=== PATIENT | male | born 1955 | race African-American/Black ===

== ENCOUNTER 2018-09-26 20:31 | Emergency (ER) | payer OTHER ==
[~2018-09-26] VITALS: Ht 172.7 cm; Wt 68.0 kg
[2018-09-26] MEDS ORDERED: LISI40TA4 PO (20:41)
[2018-09-26] MEDS ORDERED: ONDA4TAB5 PO (20:41)
[2018-09-26] MEDS ORDERED: ALLO100T PO (20:41)
[2018-09-26] MEDS ORDERED: NORCO (20:41)
[2018-09-26] MEDS ORDERED: ROSU5TAB10 PO (20:41)
[2018-09-26] MEDS ORDERED: OMEP20TA15 PO (20:41)
[2018-09-26] MEDS ORDERED: CARV12.545 PO (20:41)
[2018-09-26] MEDS ORDERED: FOLIC (20:41)
[2018-09-26] MEDS ORDERED: OMEP20CA5 PO (20:41)
[2018-09-26] MEDS ORDERED: CYAN25006 SL (20:41)
[2018-09-26] MEDS ORDERED: SODIUM CHLORIDE 0.9% 1,000 ML IV ONE (21:06)
[2018-09-26 23:27] LABS: BASOPHILS % 0.5 % (0.0-2.0); EOSINOPHILS % 1.2 % (0.0-5.0); HEMATOCRIT. 28.9 % (42.0-52.0); HEMOGLOBIN. 10.1 g/dL (14.0-18.0); LYMPHOCYTES % 41.6 % (20.0-50.0); MEAN CORPUSCULAR HEMOGLOBIN 37.4 pg (28.0-32.0); MEAN CORPUSCULAR VOLUME 106.9 fL (80.0-94.0); MEAN PLATELET VOLUME 8.5 fl (7.4-10.4); MONOCYTES % 5.8 % (2.0-8.0); NEUTROPHILS % 50.9 % (40.0-76.0); PLATELET 113 x1000/uL (130-400); RED BLOOD CELL COUNT 2.71 mill/uL (4.7-6.1); RED CELL DISTRIBUTION WIDTH 15.1 % (11.6-14.6)
[2018-09-26 23:32] LABS: CHLORIDE 110 mEq/L (98-107)
[2018-09-26 23:33] LABS: PROTHROMBIN TIME 10.7 sec (9.6-11.0)
[2018-09-27 00:24] LABS: CLARITY URINE CLEAR (CLEAR); COLOR URINE YELLOW (YELLOW); KETONES URINE 2+ (NEGATIVE); LEUKOCYTE ESTERASE URINE 2+ (NEGATIVE); NITRITE URINE POSITIVE (NEGATIVE); OCCULT BLOOD URINE TRACE (NEGATIVE); PH URINE 5.5 (4.5-8.0); PROTEIN URINE NEGATIVE (NEGATIVE); SPECIFIC GRAVITY URINE 1.016 (1.005-1.030)
[2018-09-27] MEDS ORDERED: CEFTRIAXONE 1 G PREMIX 50 ML IV ONE (00:45)
[2018-09-27] MEDS ORDERED: DEXTROSE 50% WATER 50ML SYRINGE IV ONE (00:45)
[2018-09-27 04:15] VITALS: BP 164/86
== END 2018-09-27 04:28 | disposition short-term general hospital (02) ==
LOC: ER 20:31
DX: N39.0 Urinary tract infection, site not specified (principal); E16.2 Hypoglycemia, unspecified; I10 Essential (primary) hypertension; E78.00 Pure hypercholesterolemia, unspecified; Z79.899 Other long term (current) drug therapy
CPT/HCPCS: 36415; 70450; 71045; 80053; 81003; 82962; 83880; 84484; 85025; 85610; 93005; 96365; 99285; J0696; J7030

== ENCOUNTER 2022-07-17 19:28 | Inpatient (IN) | payer OTHER ==
[~2022-07-17] VITALS: Ht 175.3 cm; Wt 72.8 kg
[~2022-07-17 19:28] MED LIST: ALLO100T PO; CARV12.545 PO; CYAN25006 SL; FOLIC; LISI40TA13 PO; NORCO; OMEP20CA14 PO; OMEP20TA15 PO; ONDA4TAB5 PO; ROSU5TAB10 PO
[2022-07-17 20:54] LABS: BASOPHILS % 0.6 % (0.0-2.0); EOSINOPHILS % 0.9 % (0.0-5.0); HEMOGLOBIN. 9.5 g/dL (14.0-18.0); LYMPHOCYTES % 17.7 % (20.0-50.0); MEAN CORPUSCULAR HEMOGLOBIN 35.6 pg (28.0-32.0); MEAN CORPUSCULAR VOLUME 104.5 fL (80.0-94.0); MEAN PLATELET VOLUME 9.2 fl (7.4-10.4); MONOCYTES % 8.4 % (2.0-8.0); NEUTROPHILS % 72.4 % (40.0-76.0); PLATELET 120 x1000/uL (130-400); RED BLOOD CELL COUNT 2.68 mill/uL (4.7-6.1); RED CELL DISTRIBUTION WIDTH 16.5 % (11.6-14.6)
[2022-07-17 20:59] LABS: CHLORIDE 108 mEq/L (98-107)
[2022-07-17] MEDS ORDERED: NITROGLYCERIN 0.4MG TABLET SL SL ONE (23:30)
[2022-07-17] MEDS ORDERED: LABETALOL HCL VIAL 20 MG/4 ML VIAL IV ONE (23:30)
[2022-07-17] MEDS ORDERED: MORPHINE SULFATE 2 MG/ML CPJ (NOT FOR IM USE) IV ONE (23:30)
[2022-07-17] MEDS ORDERED: ASPIRIN 325MG EC TABLET PO ONE (23:30)
[2022-07-17] MEDS ORDERED: LABETALOL 5MG/ML SYR 20 MG/4 ML SYRINGE IV NR (23:45)
[2022-07-18] MEDS ORDERED: MORPHINE SULFATE 2 MG/ML CPJ (NOT FOR IM USE) IV SCH (07:45)
[2022-07-18 11:30] VITALS: BP 113/55
[2022-07-18 12:00] VITALS: BP 113/55
[2022-07-18] MEDS ORDERED: ONDANSETRON HCL 4MG/2ML INJ IV PRN (12:00)
[2022-07-18] MEDS ORDERED: IPRATROPIUM/ALBUTEROL 0.5-3(2.5)MG/3ML NEB HHN SCH (12:00)
[2022-07-18 16:00] VITALS: BP 143/73
[2022-07-18 17:34] LABS: BASOPHILS % 0.3 % (0.0-2.0); EOSINOPHILS % 0.7 % (0.0-5.0); HEMATOCRIT. 27.2 % (42.0-52.0); HEMOGLOBIN. 9.3 g/dL (14.0-18.0); MEAN CORPUSCULAR HEMOGLOBIN 35.7 pg (28.0-32.0); MEAN CORPUSCULAR VOLUME 104.7 fL (80.0-94.0); MONOCYTES % 11.3 % (2.0-8.0); NEUTROPHILS % 63.7 % (40.0-76.0); PLATELET 107 x1000/uL (130-400); RED CELL DISTRIBUTION WIDTH 16.7 % (11.6-14.6)
[2022-07-18 17:47] LABS: CHLORIDE 104 mEq/L (98-107)
[2022-07-18] MEDS: ACETAMINOPHEN 325MG TABLET PO PRN (18:10)
[2022-07-18] MEDS ORDERED: KETOROLAC 15MG/ML VIAL IV PRN (18:30)
[2022-07-18 19:57] VITALS: BP 122/44
[2022-07-18 20:58] LABS: *AMPHETAMINES SCREEN URINE NEGATIVE (NEGATIVE); *BARBITURATES SCREEN URINE NEGATIVE (NEGATIVE); *BENZODIAZEPINES SCREEN URINE NEGATIVE (NEGATIVE); *COCAINE SCREEN URINE NEGATIVE (NEGATIVE); CANNABINOID URINE SCREEN NEGATIVE (NEGATIVE); METHADONE URINE SCREEN NEGATIVE (NEGATIVE); OPIATES URINE SCREEN PRESUMTIVE POSITIVE (NEGATIVE); PHENCYCLIDINE URINE SCREEN NEGATIVE (NEGATIVE)
[2022-07-18] MEDS: ALBUTEROL (0.083%) 2.5MG/3ML NEB HHN SCH (21:52)
[2022-07-18] MEDS: IPRATROPIUM BROMIDE (0.02%) 0.5MG/2.5ML NEB HHN SCH (21:52)
[2022-07-18 23:08] VITALS: BP 122/44
[2022-07-19] MEDS: IPRATROPIUM BROMIDE (0.02%) 0.5MG/2.5ML NEB HHN SCH ×2 (02:26→07:58)
[2022-07-19] MEDS: ALBUTEROL (0.083%) 2.5MG/3ML NEB HHN SCH ×2 (02:26→07:58)
[2022-07-19] MEDS: ACETAMINOPHEN 325MG TABLET PO PRN (04:37)
[2022-07-19 08:00] VITALS: BP 126/69
== END 2022-07-19 09:03 | disposition home or self-care (01) | DRG 205 ==
LOC: ER 19:28 → 7EST 07-18 00:06
PROVIDERS: ADMIT Internal Medicine; ATTEND Internal Medicine
DX: M94.0 Chondrocostal junction syndrome [Tietze] (principal); K85.20 Alcohol induced acute pancreatitis without necrosis or infection; D64.9 Anemia, unspecified; E78.5 Hyperlipidemia, unspecified; H26.9 Unspecified cataract; Z20.822 Contact with and (suspected) exposure to COVID-19; F17.210 Nicotine dependence, cigarettes, uncomplicated; I10 Essential (primary) hypertension; K40.90 Unilateral inguinal hernia, without obstruction or gangrene, not specified as recurrent; M10.9 Gout, unspecified; M19.90 Unspecified osteoarthritis, unspecified site; J44.9 Chronic obstructive pulmonary disease, unspecified; Z86.73 Personal history of transient ischemic attack (TIA), and cerebral infarction without residual deficits; Z79.82 Long term (current) use of aspirin; Z98.1 Arthrodesis status; Z87.440 Personal history of urinary (tract) infections
CPT/HCPCS: 36415; 71045; 80048; 80053; 80305; 83735; 83880; 84484; 85025; 85651; 87426; 93005; 93306; 94640; 99285; C9803; J2270; J3490

== ENCOUNTER 2024-11-12 01:37 | Inpatient (IN) | payer OTHER, MEDICARE ==
[~2024-11-12] VITALS: Ht 175.3 cm; Wt 67.6 kg
[2024-11-12 03:21] LABS: BASOPHILS % 1.5 % (0.0-2.0); EOSINOPHILS % 0.4 % (0.0-5.0); HEMATOCRIT. 26.1 % (42.0-52.0); HEMOGLOBIN. 8.8 g/dL (14.0-18.0); LYMPHOCYTES % 23.3 % (20.0-50.0); MEAN PLATELET VOLUME 10.5 fl (7.4-10.4); MONOCYTES % 6.1 % (2.0-8.0); NEUTROPHILS % 68.7 % (40.0-76.0); PLATELET 112 x1000/uL (130-400); RED BLOOD CELL COUNT 2.42 mill/uL (4.7-6.1); RED CELL DISTRIBUTION WIDTH 19.5 % (11.6-14.6)
[2024-11-12 04:24] LABS: INR 1.0
[2024-11-12 04:29] LABS: *AMPHETAMINES SCREEN URINE NEGATIVE (NEGATIVE); *BARBITURATES SCREEN URINE NEGATIVE (NEGATIVE); *BENZODIAZEPINES SCREEN URINE NEGATIVE (NEGATIVE); *COCAINE SCREEN URINE NEGATIVE (NEGATIVE); METHADONE URINE SCREEN NEGATIVE (NEGATIVE); OPIATES URINE SCREEN NEGATIVE (NEGATIVE); PHENCYCLIDINE URINE SCREEN NEGATIVE (NEGATIVE)
[2024-11-12 04:30] LABS: CANNABINOID URINE SCREEN NEGATIVE (NEGATIVE); ECSTASY MDMA SCREEN URINE NEGATIVE (NEGATIVE)
[2024-11-12 04:56] LABS: CLARITY URINE CLEAR (CLEAR); COLOR URINE YELLOW (YELLOW); GLUCOSE URINE NEGATIVE (NEGATIVE); KETONES URINE 2+ (NEGATIVE); LEUKOCYTE ESTERASE URINE 2+ (NEGATIVE); NITRITE URINE POSITIVE (NEGATIVE); OCCULT BLOOD URINE TRACE (NEGATIVE); PH URINE 6.0 (4.5-8.0); PROTEIN URINE TRACE (NEGATIVE); SPECIFIC GRAVITY URINE 1.014 (1.005-1.030); UROBILINOGEN URINE 1.0 E.U./dL (0.2-1.0)
[2024-11-12 04:58] LABS: TROPONIN I HIGH SENSITIVITY 11 ng/L (3.0-53)
[2024-11-12 05:13] LABS: CREATININE 1.1 mg/dL (0.6-1.3)
[2024-11-12 05:14] LABS: ETHANOL BLOOD 43 mg/dL (<10); UREA NITROGEN BLOOD 24 mg/dL (9-23)
[2024-11-12 05:15] LABS: ASPARTATE AMINOTRANSFERASE 25 IU/L (<34)
[2024-11-12 05:16] LABS: BILIRUBIN DIRECT 0.7 mg/dL (<=3.0); BILIRUBIN TOTAL 1.8 mg/dL (0.1-1.0); PHOSPHORUS 3.3 mg/dL (2.5-4.9); PROTEIN TOTAL 6.7 g/dL (6.0-8.3)
[2024-11-12] MEDS ORDERED: CEFTRIAXONE 2GM/50ML 50 ML IV NR (05:30)
[2024-11-12] MEDS: HYDRALAZINE 20MG/ML VIAL IV NR (05:44)
[2024-11-12] MEDS ORDERED: ACETAMINOPHEN 325MG TABLET PO PRN (05:45)
[2024-11-12] MEDS ORDERED: ONDANSETRON HCL 4MG/2ML INJ IV PRN (05:45)
[2024-11-12] MEDS ORDERED: IPRATROPIUM/ALBUTEROL 0.5-3(2.5)MG/3ML NEB HHN PRN (05:45)
[2024-11-12] MEDS ORDERED: DOCUSATE SODIUM 100MG CAPSULE PO PRN (05:45)
[2024-11-12] MEDS ORDERED: GUAIFENESIN 200MG/10ML SUGAR FREE UDC PO PRN (05:45)
[2024-11-12] MEDS ORDERED: HYDRALAZINE 20MG/ML VIAL IV PRN (05:45)
[2024-11-12] MEDS ORDERED: MAGNESIUM 1 G PREMIX 100 ML IV ONE (05:45)
[2024-11-12] MEDS ORDERED: CHLORDIAZEPOXIDE 25MG CAPSULE PO SCH (06:00)
[2024-11-12] MEDS: SODIUM CHLORIDE 0.9% 500 ML IV ONE (06:00)
[2024-11-12] MEDS ORDERED: PIPERACILLIN/TAZO 3.375G/50ML 50 ML IV SCH (06:00)
[2024-11-12] MEDS: MAGNESIUM 2 G PREMIX 50 ML IV NR (06:00)
[2024-11-12 06:27] LABS: BACTERIA URINE 2+; CALCIUM OXALATE CRYSTALS URINE 1+ /lpf; RBC URINE 0-2 /hpf (0-2); SQUAMOUS EPITHELIAL CELL URINE 1+ /lpf (RARE/1+); WBC URINE 25-50 /hpf (0-2)
[2024-11-12 06:41] LABS: TRIGLYCERIDE 97 mg/dL (0-150)
[2024-11-12 06:42] LABS: LDL CHOLESTEROL 40 mg/dL (5-100)
[2024-11-12 06:43] LABS: PHOSPHORUS 3.4 mg/dL (2.5-4.9)
[2024-11-12 06:59] LABS: FOLIC ACID (FOLATE) SERUM 17.64 ng/mL (>5.38); VITAMIN B12 SERUM 525 pg/mL (211-911)
[2024-11-12 07:54] VITALS: BP 148/82; PULSE 100; RESP 20; TEMP 36.3624
[2024-11-12 08:00] VITALS: BP 153/89; PULSE 92; RESP 18; TEMP 36.3; O2SAT 100
[2024-11-12] MEDS: FOLIC ACID 1MG TABLET PO SCH (08:36)
[2024-11-12] MEDS: THIAMINE HCL 100MG TABLET PO SCH (08:36)
[2024-11-12] MEDS: PANTOPRAZOLE SODIUM 40 MG/VIAL IV SCH (08:37)
[2024-11-12] MEDS: CARVEDILOL 6.25 MG TABLET PO SCH (08:37)
[2024-11-12] MEDS: LISINOPRIL 40MG TABLET PO SCH (08:37)
[2024-11-12] MEDS: FOLIC ACID 1 MG, THIAMINE HCL 100 MG, MVI, ADULT NO.1 10 ML in DEXTROSE 5% WATER 1,000 ML IV ONE (09:58)
[2024-11-12] MEDS: AMLODIPINE 10MG TABLET PO SCH (11:22)
[2024-11-12] MEDS: ALLOPURINOL 100 MG TABLET PO SCH (11:22)
[2024-11-12] MEDS: CEFTRIAXONE 1GM/50ML 50 ML IV SCH (11:29)
[2024-11-12 12:00] VITALS: BP 128/63; PULSE 83; RESP 20; TEMP 36.3; O2SAT 99
[2024-11-12] MEDS ORDERED: DEXTROSE 50% WATER 50ML SYRINGE IV PRN (13:00)
[2024-11-12] MEDS: GABAPENTIN 100MG CAPSULE PO SCH (13:31)
[2024-11-12] MEDS: FERROUS SULFATE 325MG TABLET PO SCH (13:31)
[2024-11-12] MEDS: INSULIN LISPRO 100 UNITS/ML SUBCUT SCH (13:35)
[2024-11-12 16:00] VITALS: BP 111/57; PULSE 77; RESP 18; TEMP 36.4; O2SAT 94
[2024-11-12] MEDS: BLOOD SUGAR DIAGNOSTIC STRIP TEST SCH (16:45)
[2024-11-12 20:00] VITALS: BP 141/73; PULSE 75; RESP 17; TEMP 37; O2SAT 97
[2024-11-12] MEDS: ATORVASTATIN CALCIUM 40MG TABLET PO SCH (20:26)
[2024-11-13] VITALS: BP 138/78; PULSE 75; RESP 18; TEMP 36.5; O2SAT 100
[2024-11-13 04:00] VITALS: BP 153/83; PULSE 70; RESP 17; TEMP 36.5; O2SAT 98
[2024-11-13 07:02] LABS: T4 FREE 0.95 ng/dL (0.89-1.76)
[2024-11-13 08:00] VITALS: BP 164/79; PULSE 68; RESP 18; TEMP 36.2; O2SAT 99
[2024-11-13] MEDS: TAMSULOSIN HCL 0.4MG SR CAPSULE PO SCH (11:49)
[2024-11-13 12:00] VITALS: BP 123/69; PULSE 81; RESP 20; TEMP 36.4; O2SAT 100
[2024-11-13 14:29] LABS: HEMATOCRIT. 27.4 % (42.0-52.0); HEMOGLOBIN. 9.2 g/dL (14.0-18.0); RED BLOOD CELL COUNT 2.52 mill/uL (4.7-6.1); RED CELL DISTRIBUTION WIDTH 19.5 % (11.6-14.6)
[2024-11-13 14:34] LABS: CREATININE 1.3 mg/dL (0.6-1.3); UREA NITROGEN BLOOD 17 mg/dL (9-23)
[2024-11-13 14:35] LABS: MEAN PLATELET VOLUME 11.0 fl (7.4-10.4); PLATELET 115 x1000/uL (130-400)
[2024-11-13 15:01] LABS: BAND% 16.0 % (1.0-6.0); LYMPHOCYTES % MANUAL 42.0 % (20.0-50.0); MONOCYTES % MANUAL 10.0 % (2.0-8.0); NEUTROPHILS % MANUAL 32.0 % (45.0-75.0); PLATELET ESTIMATE DECREASED
[2024-11-13 16:00] VITALS: BP 120/60; PULSE 72; RESP 18; TEMP 36.1; O2SAT 98
[2024-11-13 20:00] VITALS: BP 116/64; PULSE 78; RESP 18; TEMP 36.5; O2SAT 99
[2024-11-14] VITALS: BP 132/72; PULSE 68; RESP 18; TEMP 36.5; O2SAT 100
[2024-11-14 04:00] VITALS: BP 131/80; PULSE 80; RESP 18; TEMP 36.4; O2SAT 94
[2024-11-14 08:00] VITALS: BP 152/79; PULSE 68; RESP 18; TEMP 36.4; O2SAT 98
[2024-11-14] MEDS ORDERED: SULF1TAB48 PO (10:50)
[2024-11-14] MEDS ORDERED: TAMS-54 PO (10:50)
[2024-11-14 12:00] VITALS: BP 123/65; PULSE 71; RESP 18; TEMP 36.4; O2SAT 97
[2024-11-14 12:33] VITALS: BP 123/65; PULSE 71; TEMP 97.5; O2SAT 97
== END 2024-11-14 13:15 | disposition short-term general hospital (02) | DRG 92 ==
LOC: ER 01:37 → 5WST 05:27 → EDBEDREQ 05:28 → EDBEDREQTM 05:28 → ENRESERV 05:33
PROVIDERS: ADMIT Internal Medicine; ATTEND Internal Medicine
DX: G92.8 Other toxic encephalopathy (principal); N39.0 Urinary tract infection, site not specified; E80.6 Other disorders of bilirubin metabolism; K86.89 Other specified diseases of pancreas; G90.9 Disorder of the autonomic nervous system, unspecified; E83.42 Hypomagnesemia; J44.9 Chronic obstructive pulmonary disease, unspecified; F10.20 Alcohol dependence, uncomplicated; D53.9 Nutritional anemia, unspecified; F17.210 Nicotine dependence, cigarettes, uncomplicated; I10 Essential (primary) hypertension; N28.1 Cyst of kidney, acquired; E16.2 Hypoglycemia, unspecified; N40.0 Benign prostatic hyperplasia without lower urinary tract symptoms; R07.89 Other chest pain; Z79.899 Other long term (current) drug therapy; Y90.2 Blood alcohol level of 40-59 mg/100 ml
CPT/HCPCS: 36415; 71045; 74176; 80048; 80061; 80076; 80305; 80320; 81003; 82150; 82550; 82607; 82746; 82962; 83036; 83540; 83550; 83605; 83735; 83930; 84100; 84439; 84443; 84484; 85025; 87077; 93005; 93970; 97166; 97530; 99285; J0360; J0696; J1815; J2470; J3411; J3475; J3490; J7070; G0480

== ENCOUNTER 2024-12-22 01:45 | Inpatient (IN) | payer OTHER, MEDICARE ==
[~2024-12-22] VITALS: Ht 175.3 cm; Wt 58.5 kg
[~2024-12-22 01:45] MED LIST changes: -LISI40TA13 PO; +LISI40TA21 PO; -NORCO; -OMEP20CA14 PO; -OMEP20TA15 PO; -ONDA4TAB5 PO; +SULF1TAB48 PO; +TAMS-54 PO
[2024-12-22 01:47] VITALS: O2SAT 95
[2024-12-22 02:16] LABS: HEMATOCRIT. 28.6 % (42.0-52.0); HEMOGLOBIN. 9.3 g/dL (14.0-18.0); MEAN PLATELET VOLUME 9.4 fl (7.4-10.4); PLATELET 108 x1000/uL (130-400); RED BLOOD CELL COUNT 2.70 mill/uL (4.7-6.1); RED CELL DISTRIBUTION WIDTH 19.5 % (11.6-14.6)
[2024-12-22 02:26] LABS: INR 1.0
[2024-12-22 02:39] LABS: EOSINOPHILS % MANUAL 1.0 % (0.0-5.0); LYMPHOCYTES % MANUAL 49.0 % (20.0-50.0); MONOCYTES % MANUAL 5.0 % (2.0-8.0); MYELOCYTES % 2.0 % (0-0); NEUTROPHILS % MANUAL 43.0 % (45.0-75.0); PLATELET ESTIMATE SLIGHTLY DECREASED
[2024-12-22 03:08] LABS: CREATININE 1.1 mg/dL (0.6-1.3); ETHANOL BLOOD 34 mg/dL (<10); UREA NITROGEN BLOOD 19 mg/dL (9-23)
[2024-12-22 03:09] LABS: TROPONIN I HIGH SENSITIVITY 15 ng/L (3.0-53)
[2024-12-22 03:10] LABS: ASPARTATE AMINOTRANSFERASE 17 IU/L (<34); BILIRUBIN DIRECT 0.4 mg/dL (<=3.0); BILIRUBIN TOTAL 1.0 mg/dL (0.1-1.0); PHOSPHORUS 2.7 mg/dL (2.5-4.9); PROTEIN TOTAL 6.2 g/dL (6.0-8.3)
[2024-12-22] MEDS: HYDRALAZINE 20MG/ML VIAL IV NR (04:07)
[2024-12-22 05:02] LABS: CLARITY URINE CLEAR (CLEAR); COLOR URINE YELLOW (YELLOW); GLUCOSE URINE NEGATIVE (NEGATIVE); KETONES URINE TRACE (NEGATIVE); LEUKOCYTE ESTERASE URINE 2+ (NEGATIVE); NITRITE URINE POSITIVE (NEGATIVE); OCCULT BLOOD URINE NEGATIVE (NEGATIVE); PH URINE 5.5 (4.5-8.0); PROTEIN URINE NEGATIVE (NEGATIVE); SPECIFIC GRAVITY URINE 1.014 (1.005-1.030); UROBILINOGEN URINE 1.0 E.U./dL (0.2-1.0)
[2024-12-22 05:38] LABS: *AMPHETAMINES SCREEN URINE NEGATIVE (NEGATIVE); *BARBITURATES SCREEN URINE NEGATIVE (NEGATIVE); *BENZODIAZEPINES SCREEN URINE NEGATIVE (NEGATIVE); *COCAINE SCREEN URINE NEGATIVE (NEGATIVE); CANNABINOID URINE SCREEN NEGATIVE (NEGATIVE); ECSTASY MDMA SCREEN URINE NEGATIVE (NEGATIVE); METHADONE URINE SCREEN NEGATIVE (NEGATIVE); OPIATES URINE SCREEN NEGATIVE (NEGATIVE); PHENCYCLIDINE URINE SCREEN NEGATIVE (NEGATIVE); RBC URINE 0-2 /hpf (0-2); WBC URINE 25-50 /hpf (0-2)
[2024-12-22 05:44] LABS: SQUAMOUS EPITHELIAL CELL URINE FEW /lpf (RARE/1+)
[2024-12-22 05:46] LABS: BACTERIA URINE 4+
[2024-12-22 08:00] VITALS: BP 154/93; PULSE 71; RESP 18; TEMP 36.7; O2SAT 97
[2024-12-22] MEDS ORDERED: MAGNESIUM/ALUMINUM HYDROXIDE/SIMETHICONE 30ML UDC PO PRN (08:00)
[2024-12-22] MEDS ORDERED: IPRATROPIUM/ALBUTEROL 0.5-3(2.5)MG/3ML NEB HHN PRN (08:00)
[2024-12-22] MEDS ORDERED: DOCUSATE SODIUM 100MG CAPSULE PO PRN (08:00)
[2024-12-22] MEDS ORDERED: ACETAMINOPHEN 325MG TABLET PO PRN (08:00)
[2024-12-22] MEDS ORDERED: DEXTROSE 50% WATER 50ML SYRINGE IV PRN ×2 (08:00)
[2024-12-22] MEDS ORDERED: ONDANSETRON HCL 4MG/2ML INJ IV PRN (08:00)
[2024-12-22] MEDS ORDERED: POTASSIUM CHLORIDE 20MEQ TABLET SR PO PRN (08:00)
[2024-12-22] MEDS: ENOXAPARIN 40MG/0.4ML SYR SUBCUT SCH (08:35)
[2024-12-22] MEDS: CEFTRIAXONE 1GM/50ML 50 ML IV SCH (09:18)
[2024-12-22 10:27] VITALS: BP 153/86; PULSE 80; RESP 18; TEMP 36.9184
[2024-12-22 10:30] VITALS: BP 153/86; PULSE 80; RESP 18; TEMP 36.9184
[2024-12-22] MEDS: BLOOD SUGAR DIAGNOSTIC STRIP TEST SCH (12:10)
[2024-12-22 16:00] VITALS: BP 147/80; PULSE 64; RESP 18; TEMP 35.9; O2SAT 96
[2024-12-22 20:00] VITALS: BP 158/79; PULSE 74; RESP 20; TEMP 36.6; O2SAT 96
[2024-12-23] VITALS: BP 171/87; PULSE 58; RESP 20; TEMP 36.7; O2SAT 98
[2024-12-23] MEDS: CLONIDINE 0.1MG TABLET PO PRN (02:09)
[2024-12-23 04:00] VITALS: BP 155/87; PULSE 58; RESP 20; TEMP 36.5; O2SAT 98
[2024-12-23 08:00] VITALS: BP 158/84; PULSE 60; RESP 18; TEMP 36.2; O2SAT 99
[2024-12-23] MEDS: HYDROCODONE/ACETAMINOPHEN 5/325MG TABLET PO PRN (08:20)
[2024-12-23] MEDS: TAMSULOSIN HCL 0.4MG SR CAPSULE PO SCH (08:21)
[2024-12-23] MEDS: ALLOPURINOL 100 MG TABLET PO SCH (08:21)
[2024-12-23] MEDS: LISINOPRIL 40MG TABLET PO SCH (08:21)
[2024-12-23 09:20] LABS: HEMATOCRIT. 28.5 % (42.0-52.0); HEMOGLOBIN. 9.6 g/dL (14.0-18.0); MEAN PLATELET VOLUME 9.2 fl (7.4-10.4); PLATELET 93 x1000/uL (130-400); RED BLOOD CELL COUNT 2.71 mill/uL (4.7-6.1); RED CELL DISTRIBUTION WIDTH 19.3 % (11.6-14.6)
[2024-12-23 09:29] LABS: TRIGLYCERIDE 68 mg/dL (0-150)
[2024-12-23 09:30] LABS: CREATININE 1.0 mg/dL (0.6-1.3); UREA NITROGEN BLOOD 15 mg/dL (9-23)
[2024-12-23 09:31] LABS: ASPARTATE AMINOTRANSFERASE 18 IU/L (<34); LDL CHOLESTEROL 43 mg/dL (5-100); PROTEIN TOTAL 5.7 g/dL (6.0-8.3)
[2024-12-23 09:32] LABS: BILIRUBIN DIRECT 0.5 mg/dL (<=3.0); PHOSPHORUS 3.3 mg/dL (2.5-4.9); T4 FREE 1.03 ng/dL (0.89-1.76)
[2024-12-23 09:33] LABS: BILIRUBIN TOTAL 1.4 mg/dL (0.1-1.0)
[2024-12-23 11:21] LABS: CREATININE 1.0 mg/dL (0.6-1.3)
[2024-12-23 11:22] LABS: UREA NITROGEN BLOOD 16 mg/dL (9-23)
[2024-12-23 11:23] LABS: ASPARTATE AMINOTRANSFERASE 18 IU/L (<34)
[2024-12-23 11:24] LABS: BILIRUBIN TOTAL 1.1 mg/dL (0.1-1.0); PROTEIN TOTAL 5.5 g/dL (6.0-8.3)
[2024-12-23 11:32] LABS: FOLIC ACID (FOLATE) SERUM 12.20 ng/mL (>5.38)
[2024-12-23 11:33] LABS: VITAMIN B12 SERUM 420 pg/mL (211-911)
[2024-12-23 12:00] VITALS: BP 132/73; PULSE 61; RESP 18; TEMP 36.6; O2SAT 99
[2024-12-23 16:00] VITALS: BP 135/76; PULSE 66; RESP 16; TEMP 36.2; O2SAT 98
[2024-12-23 16:27] LABS: BASOPHILS % MANUAL 1.0 % (0.0-2.0); LYMPHOCYTES % MANUAL 51.0 % (20.0-50.0); MONOCYTES % MANUAL 4.0 % (2.0-8.0); NEUTROPHILS % MANUAL 44.0 % (45.0-75.0); NUCLEATED RED BLOOD CELLS 3 /100 WBC; PLATELET ESTIMATE SLIGHTLY DECREASED
[2024-12-23 20:00] VITALS: BP 142/76; PULSE 61; RESP 20; TEMP 36.9; O2SAT 98
[2024-12-23] MEDS: ATORVASTATIN CALCIUM 40MG TABLET PO SCH (20:33)
[2024-12-24] VITALS (7 sets, daily range): BP systolic 130–168; BP diastolic 62–82; PULSE 53–89; RESP 18–20; TEMP 36.6–36.9; O2SAT 96–100
[2024-12-24] MEDS ORDERED: INSULIN LISPRO 100 UNITS/ML SUBCUT ONE (11:30)
[2024-12-24] MEDS ORDERED: DEXTROSE 50% WATER 50ML SYRINGE IV PRN (12:45)
[2024-12-24] MEDS: BLOOD SUGAR DIAGNOSTIC STRIP TEST SCH (12:46)
[2024-12-24] MEDS: INSULIN LISPRO 100 UNITS/ML SUBCUT SCH (12:54)
[2024-12-24] MEDS ORDERED: NALOXONE HCL 0.4MG/ML VIAL IV PRN (13:00)
[2024-12-24 13:28] LABS: BASOPHILS % 0.8 % (0.0-2.0); EOSINOPHILS % 0.8 % (0.0-5.0); HEMATOCRIT. 27.7 % (42.0-52.0); HEMOGLOBIN. 9.1 g/dL (14.0-18.0); LYMPHOCYTES % 41.7 % (20.0-50.0); MEAN PLATELET VOLUME 10.1 fl (7.4-10.4); MONOCYTES % 3.6 % (2.0-8.0); NEUTROPHILS % 53.1 % (40.0-76.0); PLATELET 94 x1000/uL (130-400); RED BLOOD CELL COUNT 2.62 mill/uL (4.7-6.1); RED CELL DISTRIBUTION WIDTH 18.6 % (11.6-14.6)
[2024-12-24 13:46] LABS: CREATININE 1.0 mg/dL (0.6-1.3); UREA NITROGEN BLOOD 8 mg/dL (9-23)
[2024-12-24 13:48] LABS: ASPARTATE AMINOTRANSFERASE 14 IU/L (<34); BILIRUBIN DIRECT 0.3 mg/dL (<=3.0); BILIRUBIN TOTAL 0.7 mg/dL (0.1-1.0); PHOSPHORUS 3.1 mg/dL (2.5-4.9); PROTEIN TOTAL 5.8 g/dL (6.0-8.3)
[2024-12-24] MEDS: MAGNESIUM OXIDE 400MG TABLET PO SCH (17:01)
[2024-12-24] MEDS: NITROFURANTOIN 100MG M/M CAPSULE PO SCH (20:27)
[2024-12-24] MEDS ORDERED: NITR100C11 PO (20:33)
== END 2024-12-24 21:32 | disposition short-term general hospital (02) | DRG 690 ==
LOC: ER 01:45 → 8WST 05:24 → EDBEDREQ 05:27 → EDBEDREQTM 05:27 → ENRESERV 06:00 → UNDODISIN 12-24 18:45
PROVIDERS: ADMIT Family Medicine Adult Medicine; ATTEND Family Medicine Adult Medicine
DX: N39.0 Urinary tract infection, site not specified (principal); E16.2 Hypoglycemia, unspecified; F10.10 Alcohol abuse, uncomplicated; I10 Essential (primary) hypertension; Y90.1 Blood alcohol level of 20-39 mg/100 ml; Z79.899 Other long term (current) drug therapy
CPT/HCPCS: 36415; 71045; 80048; 80053; 80061; 80076; 80305; 80320; 81003; 82306; 82607; 82746; 82962; 83036; 83735; 83880; 84100; 84425; 84439; 84443; 84484; 85025; 87077; 87186; 93005; 93970; 99285; A6449; J0360; J0696; J1650; J1815; G0480